=== PATIENT | female | born 1995 | race Caucasian/White ===

== ENCOUNTER 2021-12-03 00:58 | Day surgery (SDC) | payer OTHER, SELFPAY ==
[2021-11-18 13:26] VITALS: BMI 52.1
--- NOTE | 2021-12-02 12:33 | WPDANESEPPF ---
Anes - Initial Pre Proc Eval Procedure: Operation Date: 12/03/21 07:30 Proposed Procedures p Esophagogastroduodenoscopy - Tyree Mariano MD Date/Time: 12/02/21 12:33 Surgeon: Tyree Mariano MD Pre Op Diagnosis: epigastric pain Patient Data Age: 26 Gender: F Height: 1.68 m Weight: 146.5 kg Allergies Allergy/AdvReac Type Severity Reaction Status Date / Time No Known Allergies Allergy Verified 12/03/21 06:23 Home Medications Medication Instructions Recorded Confirmed Type escitalopram oxalate 10 mg tablet 20 mg PO DAILY 11/18/21 12/03/21 History lisinopril 20 mg tablet 20 mg PO DAILY 11/18/21 12/03/21 History omeprazole 40 mg capsule,delayed 40 mg PO DAILY 11/18/21 12/03/21 History release Patient hx anesthesia problems: none Family hx anesthesia problems: none Results Review: All pre-operative results and documents have been reviewed as part of the pre-operative evaluation. [facility] Past Medical History Medical History (Updated 12/02/21 @ 12:33 by Maged Karimi DO) Anxiety Celiac disease Hypertension Social History Social History Smoking status: Never smoker Substance use: never Living arrangements: with friend(s) Spiritual care concerns: No Anes - Eval Final PreProcedure Day of Procedure 12/02/21 12:33 Patient weight: super morbidly obese Heart: regular rate and rhythm Lungs: clear to auscultation Airway: Mallampati scale class II Neurological: alert and oriented Last oral intake: >/= 8 hours ASA classification: III Emergent: no Anesthetic plan: proceed Anesthesia type and monitoring: general GIVS and standard monitoring Results Review: All pre-operative results and documents have been reviewed as part of the pre-operative evaluation. Informed Consent: The patient's anesthetic plan and its attendant risks and benefits were discussed with the patient/family/POA. Questions were solicited and answers provided to the satisfaction of the patient/family/POA.
[2021-12-03 06:27] VITALS: BP 147/94; PULSE 111; RESP 18; TEMP 36.4; O2SAT 98; BMI 52.1
[2021-12-03] MEDS: LACTATED RINGERS 1,000 ML 150 ML IV CONT (06:39)
--- NOTE | 2021-12-03 07:28 | PM.HPGS ---
History of Present Illness History of Present Illness Consent: Risks, benefits, and alternatives have been discussed and questions answered. Patient agrees to proceed with procedure. Chief complaint: epigastric pain Narrative: Farida De Guzman is a 26 year old female with diarrhea and already had colonoscopy, she was told that had blood work suggestive of celiac but never had egd Review of Systems Constitutional: Constitutional: Denies headache(s) and Denies weakness Eyes: Eyes: Denies blurry vision ENT: Reports Normal hearing present, Denies headache(s) and Denies neck pain Cardiovascular: Cardiovascular: Denies chest pain and Denies dyspnea Respiratory: Respiratory: Denies dyspnea Gastrointestinal: Gastrointestinal: Reports no additional gastrointestinal complaints Genitourinary: Genitourinary: Denies dysuria Musculoskeletal: Musculoskeletal: Denies neck pain Integumentary/Breasts: Skin/Breast: Denies dry skin Neurologic: Reports Normal hearing present, Denies headache(s) and Denies weakness Psychiatric: Psychiatric: Denies anxiety Endocrine: Endocrine: Denies change in body appearance Hematologic/Lymphatic: Hematologic/Lymphatic: Denies easy bleeding Allergic/Immunologic: Allergic/Immunologic: Denies urticaria PMFSH Past Medical History Medical History (Updated 12/03/21 @ 07:29 by Tyree Mariano MD) Anxiety Celiac disease Chronic diarrhea Hypertension Social History Social History Smoking status: Never smoker Substance use: never Living arrangements: with friend(s) Spiritual care concerns: No Meds Home Medications and Allergies Home Medications Medication Instructions Recorded Confirmed Type escitalopram oxalate 10 mg tablet 20 mg PO DAILY 11/18/21 12/03/21 History lisinopril 20 mg tablet 20 mg PO DAILY 11/18/21 12/03/21 History omeprazole 40 mg capsule,delayed 40 mg PO DAILY 11/18/21 12/03/21 History release Allergies Allergy/AdvReac Type Severity Reaction Status Date / Time No Known Allergies Allergy Verified 12/03/21 06:23 Vital Signs Vital Signs - 24 hr 12/03/21 06:27 Temperature 97.6 F Pulse Rate 111 H Respiratory Rate 18 Blood Pressure 147/94 H Pulse Oximetry 98 Oxygen Delivery Room Air Exam Const: General: comfortable and no acute distress HENMT: General nose exam: Normal nares present Eyes: General: appearance normal, both eyes and all related structures Neck: Neck: no JVD Resp: Auscultation: clear to auscultation bilaterally Cardio: Rate: regular rate Rhythm: regular rhythm GI: Inspection: non-distended GI Palp: Yes Soft to palpation Skin: General skin exam: normal color Neuro: General: gait normal Speech: normal speech Extrem: General: normal to inspection Psych: Mental Status: mental status grossly normal Assessment and Plan Assessment and plan (1) Chronic diarrhea: Code(s): K52.9 - Noninfective gastroenteritis and colitis, unspecified Status: Acute Assessment and Plan: egd with bx, will document if celiac (2) Celiac disease: Code(s): K90.0 - Celiac disease Status: Acute Assessment and Plan: apparently recently diagnosed by blood work she has been trying gluten free diet but not 100%
[2021-12-03] MEDS: BENZOCAINE (*SP) 60 ML SPRAY CAN (HURRICAINE) 1 SPRAY MUCOUS MEM (07:32)
[2021-12-03 07:42] VITALS: BP 145/96; PULSE 97; RESP 19; O2SAT 98
[2021-12-03 07:52] VITALS: BP 151/106; PULSE 95; RESP 20; O2SAT 99
[2021-12-03 08:02] VITALS: BP 152/98; PULSE 95; RESP 20; O2SAT 100
== END 2021-12-03 08:13 | disposition home or self-care (01) ==
PROVIDERS: Visit Provider Internal Medicine Gastroenterology
PROC: 0DJ08ZZ Inspection of Upper Intestinal Tract, Via Natural or Artificial Opening Endoscopic (ICD-10-PCS; CPT 43235; principal; 2021-12-03 07:30)
DX: K90.0 Celiac disease (principal); R19.7 Diarrhea, unspecified; I10 Essential (primary) hypertension; F41.9 Anxiety disorder, unspecified; E66.01 Morbid (severe) obesity due to excess calories; Z68.43 Body mass index [BMI] 50.0-59.9, adult
CPT/HCPCS: 43239; 88305; J2704; J7120